=== PATIENT | male | born 1960 | race Caucasian/White ===

== ENCOUNTER 2023-08-19 13:53 | Outpatient (CLI) | payer OTHER, MEDICAID | END 2023-08-19 13:54 | disposition home or self-care (01) | LOC: BICULT 13:53 | PROVIDERS: ATTEND Nurse Practitioner Family | DX: R10.2 Pelvic and perineal pain (principal) | CPT/HCPCS: 76856 ==

== ENCOUNTER 2023-12-03 13:25 | Outpatient (CLI) | payer OTHER, MEDICAID | END 2023-12-03 13:26 | disposition home or self-care (01) | LOC: SCSRAD 13:25 | PROVIDERS: ATTEND Physician Assistant | DX: R07.89 Other chest pain (principal) ==